=== PATIENT | male | born 2000 | race Caucasian/White ===

== ENCOUNTER 2021-04-26 15:43 | Emergency (ER) | payer OTHER ==
[~2021-04-26] VITALS: Ht 177.8 cm; Wt 68.2 kg
[2021-04-26 15:46] VITALS: BP 110/65
[2021-04-26] MEDS ORDERED: PredniSONE 20 MG TABLET PO ONE (17:30)
[2021-04-26 17:40] LABS: COVID AG,FIA SOURCE NASOPHARYNGEAL
[2021-04-26 18:08] LABS: INFLUENZA TYPE A NEGATIVE FOR TYPE A (NEGATIVE); INFLUENZA TYPE B NEGATIVE FOR TYPE B (NEGATIVE)
== END 2021-04-26 18:37 | disposition home or self-care (01) ==
LOC: EMS 15:47
DX: U07.1 COVID-19 (principal); L50.9 Urticaria, unspecified
CPT/HCPCS: 87426; 87804; 99283; J7512; U0003